=== PATIENT | female | born 1965 | race African-American/Black ===

== ENCOUNTER 2024-05-27 09:58 | Emergency (ER) | payer OTHER | END 2024-05-27 11:40 | disposition home or self-care (01) | LOC: FB.ED 09:58 | DX: S93.401A Sprain of unspecified ligament of right ankle, initial encounter (principal); Z88.0 Allergy status to penicillin; W01.0XXA Fall on same level from slipping, tripping and stumbling without subsequent striking against object, initial encounter | CPT/HCPCS: 73630-RT; 99283 ==